=== PATIENT | female | born 1945 | race Caucasian/White ===

== ENCOUNTER → 2016-12-26 | Outpatient (CLI) | payer MEDICARE, BC ==
[~2016-12-26] MED LIST: ASPIRIN E.C. 8181 MG PO; BENADRYL25 M1 PO; CRESTOR 10MG10 MG PO; FEMARA2.5 MG PO; FISH OIL500 MG PO; FLAGYL500 MG PO; LEVAQUIN 750MG750 M1 PO; LEVOTHYROXIN0.088 MG PO; MULTI VITAMINS1 TAB PO; PERCOCET 325 MG1 TA2 PO; SIMVASTATIN40 MG PO; SYNTHROID0.075 MG/T PO; TRICOR 48MG48 MG PO; ULTRAM 50MG TAB50 MG PO; ZOFRAN8 MG PO
== END ==
LOC: MC.RAD 14:00
DX: Z12.31 Encounter for screening mammogram for malignant neoplasm of breast (principal); R92.1 Mammographic calcification found on diagnostic imaging of breast

== ENCOUNTER 2017-01-18 10:23 | Emergency (ER) | payer MEDICARE, BC ==
[~2017-01-18] VITALS: Ht 154.9 cm; Wt 61.4 kg
[~2017-01-18 10:23] MED LIST changes: -FLAGYL500 MG PO; -LEVAQUIN 750MG750 M1 PO; -PERCOCET 325 MG1 TA2 PO; -SYNTHROID0.075 MG/T PO; -ULTRAM 50MG TAB50 MG PO; -ZOFRAN8 MG PO
[2017-01-18 10:45] VITALS: TEMP 98.7
[2017-01-18 11:28] LABS: BASO # 0.1 (0.0-0.2); BASO % 0.3 % (0.0-2.0); EOS # 0.1 (0.0-0.7); EOS % 0.7 % (0-4.0); GRAN # 10.8 (1.4-6.5); GRAN % 73.3 % (42.2-75.2); HEMATOCRIT 38.9 % (37.0-47.0); HEMOGLOBIN 13.1 g/dl (12.5-16.0); LYMPH # 2.4 (1.2-3.4); LYMPH % 16.4 % (20.0-51.0); MEAN CELL VOLUME 94 fl (80.0-100.0); MEAN CORPUSCULAR HEMOGLOBIN 32 pg (27.0-31.0); MEAN CORPUSCULAR HGB CONC 34 g/dl (33.0-37.0); MEAN PLATELET VOLUME 8.9 fl (7.4-10.4); MONO # 1.3 (0.1-0.6); MONO % 8.9 % (1.7-9.3); PLATELET COUNT 272 K/mm3 (130-400); RED BLOOD COUNT 4.12 M/mm3 (4.10-5.30); REDCELL DISTRIBUTION WIDTH-CV 13.1 % (11.5-14.5); WHITE BLOOD COUNT 14.8 K/mm3 (4.8-10.8)
[2017-01-18] MEDS ORDERED: SYNTHROID0.075 MG/T PO (11:29)
[2017-01-18 11:37] LABS: ADJUSTED CALCIUM 8.6 mg/dL (8.4-10.2); ALBUMIN 4.6 gm/dL (3.5-5.0); BILIRUBIN,TOTAL 1.4 mg/dL (0.0-1.0); CALCIUM 9.1 mg/dL (8.4-10.2); CREATININE, serum 0.67 mg/dL (0.52-1.25); POTASSIUM 3.5 mmol/L (3.4-5.0)
[2017-01-18 12:14] LABS: PH 6 (5-8); URINE APPEARANCE Clear; URINE BILIRUBIN Negative (NEGATIVE); URINE BLOOD 1+ (NEGATIVE); URINE COLOR Straw; URINE GLUCOSE Negative (NEGATIVE); URINE KETONE Negative (NEGATIVE); URINE UROBILINOGEN Negative (NEGATIVE)
[2017-01-18 12:20] LABS: SQUAMOUS EPITHELIAL 0-2 /hpf; URINE RBC 0-2 /hpf
[2017-01-18 12:21] LABS: URINE BACTERIA Rare /hpf
[2017-01-18] MEDS ORDERED: PERCOCET 325 MG1 TA2 PO (13:02)
[2017-01-18] MEDS ORDERED: ZOFRAN8 MG PO (13:02)
[2017-01-18] MEDS ORDERED: ULTRAM 50MG TAB50 MG PO (13:02)
[2017-01-18] MEDS ORDERED: LEVAQUIN 750MG750 M1 PO (13:28)
[2017-01-18] MEDS ORDERED: FLAGYL500 MG PO (13:28)
[2017-01-18 13:30] VITALS: BP 134/78; PULSE 89
== END 2017-01-18 13:34 | disposition home or self-care (01) ==
LOC: COL.ER 10:23
PROVIDERS: Emergency Medicine
DX: R10.32 Left lower quadrant pain (principal); R11.2 Nausea with vomiting, unspecified
CPT/HCPCS: J1885; J7030; Q9967

== ENCOUNTER → 2018-02-08 | Outpatient (CLI) | payer MEDICARE, BC ==
[~2018-02-08] MED LIST changes: +FLAGYL500 MG PO; +LEVAQUIN 750MG750 M1 PO; +PERCOCET 325 MG1 TA2 PO; +SYNTHROID0.075 MG/T PO; +ULTRAM 50MG TAB50 MG PO; +ZOFRAN8 MG PO
== END ==
LOC: MC.RAD 13:40
DX: Z12.31 Encounter for screening mammogram for malignant neoplasm of breast (principal)

== ENCOUNTER 2018-03-23 15:02 | Outpatient (RCR) | payer MEDICARE, BC | END 2018-04-14 11:40 | disposition home or self-care (01) | LOC: WSPT 15:02 | DX: I89.0 Lymphedema, not elsewhere classified (principal) | CPT/HCPCS: G8984-GP; G8985-GP; G8986-GP ==

== ENCOUNTER → 2019-03-31 | Outpatient (CLI) | payer MEDICARE, BC | LOC: MC.RAD 11:23 | DX: Z12.31 Encounter for screening mammogram for malignant neoplasm of breast (principal); Z98.890 Other specified postprocedural states ==

== ENCOUNTER → 2019-04-04 | Outpatient (CLI) | payer MEDICARE, BC | LOC: MC.RAD 12:50 | DX: R22.31 Localized swelling, mass and lump, right upper limb (principal) ==

== ENCOUNTER → 2020-04-18 | Outpatient (CLI) | payer MEDICARE, BC | LOC: MC.RAD 13:11 | DX: Z12.31 Encounter for screening mammogram for malignant neoplasm of breast (principal) ==